=== PATIENT | male | born 1975 | race Two or more races ===

== ENCOUNTER 2020-03-24 09:14 | Emergency (ER) | payer MEDICAID ==
[~2020-03-24] VITALS: Ht 182.9 cm; Wt 122.4 kg
--- NOTE | 2020-03-24 09:30 | NUR ---
PATIENT WALKED BACK FROM TRIAGE WITH CHIEF C/O LEFT RIB PAIN X2 WEEKS. PATIENT STATES HE STARTED HAVING LEFT RIB PAIN A COUPLE WEEKS AGO AND IT STARTED GETTING BETTER UNTIL EARLY THIS MORNING, HE COUGHED AND FELT SOMETHINGF "POP" IN HIS LEFT RIB AND PAIN HAS BEEN SEVERE IN THIS AREA. PATIENT DENIES SOB, CHEST PAIN, N/V/D, DENIES FEVER,.
--- NOTE | 2020-03-24 09:32 | NUR ---
ERMD AT BEDSIDE FOR EVALUATION,.
[2020-03-24] MEDS ORDERED: IBUPROFEN 600 MG TABLET ONE (09:40)
--- NOTE | 2020-03-24 09:48 | NUR ---
PATIENT TO IMAGING.
[2020-03-24] MEDS ORDERED: IBUPROFEN 600 MG TABLET PO ONE (10:00)
--- NOTE | 2020-03-24 10:17 | NUR ---
ERMD AT BEDSIDE TO DISCUSS POC.
[2020-03-24 10:34] VITALS: BP 125/84
--- NOTE | 2020-03-24 10:41 | NUR ---
Patient given discharge instructions and prescriptions and they have confirmed that they understand the instructions. Patient stable and ambulatory with steady gait from ED with significant other.
== END 2020-03-24 10:42 | disposition home or self-care (01) ==
LOC: ED 10:14
DX: J18.1 Lobar pneumonia, unspecified organism (principal); R09.1 Pleurisy; F17.200 Nicotine dependence, unspecified, uncomplicated
CPT/HCPCS: 99283